=== PATIENT | female | born 2005 | race African-American/Black ===

== ENCOUNTER 2024-12-16 14:58 | Emergency (ER) | payer SELFPAY ==
[2024-12-16] MEDS ORDERED: Mineral Oil ENEMA ONE (19:14)
[2024-12-16 19:32] LABS: Glucose, Urine (Dipstick) Normal (Negative); Leukocyte Negative (Negative); Protein, Urine (Dipstick) Negative (Neg-Trace); Specific Gravity, Urine 1.005 (1.005-1.030)
[2024-12-16 19:34] LABS: Pregnancy Test - Urine (BHCG) Negative (Negative); Pregu Control Bar Appear? YES (CONTROL BAR)
[2024-12-16 19:35] LABS: Pregu Control Background? CLEAR/WHITE (CLR/WHITE)
[2024-12-16 19:41] LABS: Bacteria/HPF 3+ HPF (None Seen); CAUTI Indications for Culture Pelvic or flank pain; Mucous/LPF 1+ LPF (<2+); RBC/HPF 0-3 HPF (0-3); WBC/HPF 0-3 HPF (0-3)
[2024-12-16 19:43] LABS: Urine Culture Reflex No No
== END 2024-12-16 19:50 | disposition home or self-care (01) ==
LOC: CSHERS 14:58
DX: K59.00 Constipation, unspecified (principal)
CPT/HCPCS: 81001; 81025; 87086; 99283